=== PATIENT | male | born 1980 | race Caucasian/White ===

== ENCOUNTER 2018-11-26 21:39 | Emergency (ER) | payer OTHER ==
[~2018-11-26] VITALS: Ht 170.2 cm; Wt 71.2 kg
[2018-11-26] MEDS ORDERED: BENICAR20 MG (21:48)
[2018-11-26] MEDS ORDERED: OMEPRAZOLE10 MG (21:49)
== END 2018-11-27 02:39 | disposition home or self-care (01) ==
LOC: ER 21:39
DX: J06.9 Acute upper respiratory infection, unspecified (principal)